=== PATIENT | male | born 1965 | race Caucasian/White ===

== ENCOUNTER → 2020-10-06 | Outpatient (CLI) | payer OTHER | LOC: SJCVCIMAG 07:50 | PROVIDERS: ATTEND Internal Medicine | DX: I34.0 Nonrheumatic mitral (valve) insufficiency (principal); I44.7 Left bundle-branch block, unspecified; I10 Essential (primary) hypertension; R94.31 Abnormal electrocardiogram [ECG] [EKG]; Z87.891 Personal history of nicotine dependence ==

== ENCOUNTER → 2020-10-21 | Outpatient (CLI) | payer OTHER | LOC: LAB 08:11 | PROVIDERS: ATTEND Internal Medicine | DX: Z01.812 Encounter for preprocedural laboratory examination (principal); Z20.822 Contact with and (suspected) exposure to COVID-19 ==

== ENCOUNTER → 2020-10-24 | Outpatient (CLI) | payer OTHER ==
[~2020-10-24] VITALS: Ht 185.4 cm; Wt 124.7 kg
[~2020-10-24] MED LIST: COZAAR 25 MG TA25 M1 PO; DEXILANT60 MG PO; FISH OIL 1,0001 EAC9 PO; PROBIOTIC1 EAC7 PO; VIAGRA50 MG PO
[2020-10-24 07:03] VITALS: BP 140/81
--- NOTE | 2020-10-24 09:02 | CATHLAB ---
[facility] [place] [address] INVASIVE PROCEDURE REPORT Name: NADIA SALES Room #: REG MULU Brink.#: [id number] Admission: 10/24/20 Attend Phys: David Starks MD, Discharge: Date of : 61 Report #: [id number] THIS REPORT FOR: cc: Jameson Castillo Louis D. DO Lundgren, Craig H. MD [facility] ~ APPROVED REPORT Study performed: 10/24/2020 07:41:37 Patient Details Patient Status: Out-Patient Room #: The patient is a 55 year-old male Event Personnel David Starks Speed Belt Sander Tender, Robbin Bee RN RN, Janessa Paniagua RTR, Henry Gallo Roberta Monitor Procedures Performed Art Access - R femoral artery* Left Heart Cath w/or w/o Coronaries [id number] [facility] [id number] Initial Mod Sed Same Phys/QHP Gr5y [id number] Hemostasis w/ Mynx Indication Chest pain Procedure Narrative The patient was brought electively to the Cardiac Catheterization Laboratory and was prepped and draped in a sterile manner. The Right Groin^ was infiltrated with 1% Lidocaine subcutaneous anesthesia. A PINNACLE 6FR Sheath #[id number] sheath was inserted into the RFA^. Coronary angiography was performed using coronary diagnostic catheters. The right coronary system was accessed and visualized with a JR4 catheter. The left coronary system was accessed and visualized with a JL4 catheter. The left ventricle was accessed and visualized with a STR PIG catheter. Left ventricular/Aortic Valve gradient assessed via catheter pullback. Left ventriculogram was performed in MARTINEZ projection. The patient tolerated the procedure well and there were no complications associated with the procedure. There was no hematoma. Intraoperative Conscious Sedation Sedation start time: 803 Case end Time: 829 [facility] [place] [place] [address] INVASIVE PROCEDURE REPORT Name: NADIA SALES Room #: REG [facility]#: [id number] Admission: 10/24/20 Attend Phys: David Starks, Discharge: Date of : 61 Report #: [id number] Fentanyl 50 mcg Versed 2 mg Fluoro Time: 0.90 minutes Dose: DAP 5977.00 cGycm2 728 mGy Contrast Type and Amount: Omnipaque 85 ml Coronary Angiography The patient's coronary anatomy is left dominant. Diagnostic Cath Left Main Normal left main LAD Normal left anterior descending Diagonal 1 Normal first diagonal branch Diagonal 2 Normal second diagonal branch Circumflex Normal, dominant circumflex OM1 High, first marginal branch, angiographically normal OM2 Large second marginal branch, normal L PDA Normal posterior descending Right Coronary Small nondominant right coronary, angiographically normal Left Ventriculography The left ventricle is normal in size with normal contractility. The left ventricular ejection fraction is estimated to be 60-65%. Left ventricular wall motion abnormalities are not present. There is no mitral insufficiency. Hemodynamics The aortic pressure is 129/65 mmHg with a mean of 91 mmHg. The left ventricular pressure is 161/1 mmHg with a mean of mmHg. The left ventricular end diastolic pressure is 19 mmHg. Conclusion 1. Normal global and regional left ventricular systolic function. EF 65% 2. Normal left main 3. Normal coronary vasculature. Left coronary dominant circulation. <ELECTRONICALLY SIGNED> By: David Starks MD, FACC 10/24/20900 0 0 David Starks MD, FACC /INF
== END | disposition home or self-care (01) ==
LOC: CATH 06:22
PROVIDERS: ATTEND Internal Medicine
DX: R07.9 Chest pain, unspecified (principal); R94.39 Abnormal result of other cardiovascular function study; I10 Essential (primary) hypertension; E78.5 Hyperlipidemia, unspecified; K21.9 Gastro-esophageal reflux disease without esophagitis; Z87.891 Personal history of nicotine dependence; Z98.890 Other specified postprocedural states; Z79.899 Other long term (current) drug therapy; Z82.49 Family history of ischemic heart disease and other diseases of the circulatory system